=== PATIENT | male | born 1955 | race Caucasian/White ===

== ENCOUNTER 2021-03-18 19:48 | Emergency (ER) | payer OTHER ==
[~2021-03-18] VITALS: Ht 167.6 cm; Wt 68.2 kg
--- NOTE | 2021-03-18 21:58 | PHYS DOC ---
Past Medical History Past Medical History: No Pertinent History Past Surgical History: Knee Replacement Additional Past Surgical Histo: Bilateral knee and left ankle Smoking Status: Current Every Day Smoker Alcohol Use: Rarely Drug Use: None General Adult EDM: Chief Complaint: RIB PAIN HPI: HPI: Patient is a 65-year-old male with no pertinent past medical history presenting for left rib lateral rib pain. He reports that he slipped on a piece paper on his hardwood floor and then fell into his couch on his left side on Sunday. He did not notice the pain until today. Reports it is sharp, and worse when he reaches his arm upward or takes a deep breath. He denies any shortness of breath or hemoptysis. Denies other injury. Review of Systems: Review of Systems: Constitutional: Denies fever or chills HENT: Denies nasal congestion or sore throat Respiratory: Denies cough or shortness of breath Cardiovascular: Reports left lateral chest pain; denies palpitations GI: Denies abdominal pain, nausea, or vomiting Musculoskeletal: Denies back pain or joint pain Integument: Denies rash or laceration Neurologic: Denies headache, focal weakness or sensory changes Complete systems were reviewed and found to be within normal limits, except as documented in this note. Heart Score: C/O Chest Pain: N/A Physical Exam: PE: Constitutional: Well developed, well nourished, no acute distress, non-toxic appearance HENT: Normocephalic, atraumatic Eyes: Conjunctiva normal, no discharge Neck: Normal range of motion, supple Lungs & Thorax: No respiratory distress, equal chest rise and fall, equal breath sounds throughout. L lateral ribs 4-6 tender to palpation. Abdomen: Soft, no tenderness; pelvis stable and nontender Skin: Warm, dry, no rash Back: No tenderness, no CVA tenderness Extremities: No tenderness, no edema Neurologic: Alert and oriented X 3, no focal deficits noted Psychologic: Affect normal, judgment normal Radiology/Procedures: Radiology/Procedures: PROCEDURE: RIBS LEFT AND PA CHEST EXAMINATION: Chest and left ribs radiographs. VIEWS: Single view of the chest and 3 views of the left ribs. COMPARISON: Chest radiograph dated 02/14/2011 INDICATION:65 years, Male, pain, status post blunt trauma. FINDINGS: Normal cardiomediastinal silhouette. Left basilar subsegmental atelectasis and/or scarring. No focal consolidation. No pleural effusion or pneumothorax. No acute osseous process. IMPRESSION: No acute cardiopulmonary abnormality or left rib fracture. Electronically signed by: Brandy Horton MD (03/18/2021 10:16 PM) [facility] Course & Med Decision Making: Course & Med Decision Making Pertinent Imaging studies reviewed. (See chart for details) Patient is a 65-year-old male presenting for left rib pain after mechanical fall and trauma to the area. He denies shortness of breath. Lung sounds were present throughout. CXR demonstrated no evidence of rib fracture. Will recommend icing area, pain control with tylenol/ibuprofen, and use of incentive spirometer. Patient stable for discharge with outpatient follow-up with PCP. Discussed findings and plan with patient, who acknowledges understanding and agreement. Nikki Disclaimer: Nikki Disclaimer: This electronic medical record was generated, in whole or in part, using a voice recognition dictation system. Departure Departure Impression: Primary Impression: Rib contusion Qualified Codes: S20.212A - Contusion of left front wall of thorax, initial encounter Disposition: HOME / SELF CARE / HOMELESS Condition: STABLE Referrals: NO PCP (PCP) Patient Instructions: Incentive Spirometer, Rib Contusion Additional Instructions: Ice area 20 minutes on then leave off next 20 minutes. Repeat several times daily for the next 2 days. Use [id number] ibuprofen and or Tylenol for pain or discomfort. Use incentive spirometer 10 times in a row at least 5 times daily for the next several days. This will help prevent pneumonia from forming. MICHAEL MORATAYA DO Mar 18, 2021 21:58
[2021-03-18 22:00] VITALS: BP 146/84
--- NOTE | 2021-03-18 22:19 | RAD ---
EXAMINATION: Chest and left ribs radiographs. VIEWS: Single view of the chest and 3 views of the left ribs. COMPARISON: Chest radiograph dated 02/14/2011 INDICATION:65 years, Male, pain, status post blunt trauma. FINDINGS: Normal cardiomediastinal silhouette. Left basilar subsegmental atelectasis and/or scarring. No focal consolidation. No pleural effusion or pneumothorax. No acute osseous process. IMPRESSION: No acute cardiopulmonary abnormality or left rib fracture. Electronically signed by: Brandy Horton MD (03/18/2021 10:16 PM) [facility]
== END 2021-03-19 00:01 | disposition home or self-care (01) ==
LOC: ER 19:48
DX: S20.212A Contusion of left front wall of thorax, initial encounter (principal); F17.200 Nicotine dependence, unspecified, uncomplicated; W01.0XXA Fall on same level from slipping, tripping and stumbling without subsequent striking against object, initial encounter; Y93.89 Activity, other specified; Y92.89 Other specified places as the place of occurrence of the external cause; Y99.8 Other external cause status
CPT/HCPCS: 71101; 99283